=== PATIENT | male | born 1930 | race Caucasian/White ===

== ENCOUNTER 2016-09-22 09:29 | Outpatient (CLI) | payer MEDICARE ==
--- NOTE | 2016-09-22 12:07 | RAD ---
LUMBAR SPINE THREE VIEWS: History: Patient fell and landed on bottom six days ago. Low back pain. Comparison: None. FINDINGS: There are five lumbar type vertebral bodies. There is a moderate compression fracture with associate d retropulsion at the L1 level. Fracture is indeterminate. MRI is recommended. There is grade I ante rolisthesis of L3 upon L4. IMPRESSION: Indeterminate moderate L1 compression fracture. Better interrogation with MRI is recommended. POS: [facility]
== END 2016-09-22 09:30 | disposition home or self-care (01) ==
LOC: NAV RAD 09:29
PROVIDERS: ATTEND Family Medicine
DX: M54.5 Low back pain (principal); M48.56XA Collapsed vertebra, not elsewhere classified, lumbar region, initial encounter for fracture
CPT/HCPCS: 72100

== ENCOUNTER 2016-09-22 11:29 | Outpatient (CLI) | payer MEDICARE ==
[2016-09-22 13:45] LABS: #Basophils 0.1 thou/uL (0.0-0.2); #Eosinphils 0.3 thou/uL (0.0-0.7); #Lymphocytes 2.8 thou/uL (1.20-3.40); #Monocytes 0.5 thou/uL (0.11-0.59); #Neutrophils 3.3 thou/uL (1.40-6.50); %Basophils 0.9 % (0.0-1.0); %Eosinophils 4.2 % (0.0-10.0); %Lymphocytes 40.5 % (21.0-51.0); %Monocytes 7.1 % (0.0-10.0); %Neutrophils 47.3 % (42.0-75.0); Hemoglobin 13.6 g/dL (14.0-18.0); Mean Corpuscular HGB CONC 31.8 g/dL (32.0-36.0); Mean Corpuscular Hemoglobin 31.6 pg (27.0-31.0); Mean Corpuscular Volume 99.5 fl (80.0-94.0); Mean Platelet Volume 5.8 fL (7.4-10.4); Platelet Count 227 thou/uL (130-400); RBC Distribution Width 13.5 % (11.5-14.5)
[2016-09-22 14:14] LABS: ALT (SGPT) 12 U/L (8-55); AST (SGOT) 21 U/L (5-34); Albumin 3.7 g/dL (3.4-4.8); Alkaline Phosphatase 61 U/L (40-150); Anion Gap 17 mmol/L (10-20); BUN (Urea Nitrogen) 20 mg/dL (8.4-25.7); Bilirubin, Direct 0.2 mg/dL (0.1-0.3); Bilirubin, Total 0.4 mg/dL (0.2-1.2); Calc. Creatinine Clearance 0 mL/min (70-130); Calcium 9.2 mg/dL (7.8-10.44); Carbon Dioxide 25 mmol/L (23-31); Cardiac Risk 3.7 (Less than 4.5); Chloride 100 mmol/L (98-107); Cholesterol 152 mg/dl (< 200 Desired); Estimated GFR-MDRD 63; Glucose 75 mg/dL (83-110); HDL Cholesterol 41 mg/dL (>60 Neg Risk); LDL Cholesterol, Calculated 102 mg/dL; Potassium 5.1 mmol/L (3.5-5.1); Protein, Total 7.3 g/dL (5.8-8.1); Sodium 137 mmol/L (136-145); Triglycerides 44 mg/dL (Less than 150)
[2016-09-22 14:46] LABS: Hemoglobin A1c 5.4 % (4.0-6.0)
== END 2016-09-22 11:30 | disposition home or self-care (01) ==
LOC: NAVSJIPCSP 11:29
PROVIDERS: ATTEND Family Medicine
DX: E03.9 Hypothyroidism, unspecified (principal); I10 Essential (primary) hypertension; I48.2 Chronic atrial fibrillation; R53.1 Weakness; Z79.899 Other long term (current) drug therapy
CPT/HCPCS: 36415; 80048; 80061; 80076; 83036; 84443; 85025

== ENCOUNTER 2019-09-08 16:52 | Emergency (ER) | payer MEDICARE ==
[2019-09-08] MEDS ORDERED: Sulfameth/Trimethoprim DS 800-160mg TAB ONE (18:15)
== END 2019-09-08 18:18 | disposition home or self-care (01) ==
LOC: NAV ERS 16:52
DX: L03.116 Cellulitis of left lower limb (principal); I48.91 Unspecified atrial fibrillation; F03.90 Unspecified dementia, unspecified severity, without behavioral disturbance, psychotic disturbance, mood disturbance, and anxiety
CPT/HCPCS: 99283